=== PATIENT | male | born 1995 | race African-American/Black ===

== ENCOUNTER 2020-02-28 16:45 | Emergency (ER) | payer MEDICAID, OTHER ==
[~2020-02-28] VITALS: Ht 182.9 cm; Wt 65.0 kg
[2020-02-28] MEDS ORDERED: HYDROCODONE/ACETAMINOPHEN 5/325MG TABLET PO STA (18:05)
[2020-02-28 20:00] VITALS: BP 119/68
== END 2020-02-28 21:57 | disposition left against medical advice (07) ==
LOC: ER 16:45
DX: S36.33XA Laceration of stomach, initial encounter (principal); R07.89 Other chest pain; X99.8XXA Assault by other sharp object, initial encounter; Y93.89 Activity, other specified; Y92.89 Other specified places as the place of occurrence of the external cause; Z87.828 Personal history of other (healed) physical injury and trauma
CPT/HCPCS: 71045; 71250; 74176; 99284

== ENCOUNTER 2022-10-03 11:05 | Emergency (ER) | payer MEDICAID ==
[~2022-10-03] VITALS: Ht 182.9 cm; Wt 66.0 kg
[2022-10-03 11:08] VITALS: BP 132/81
[2022-10-03] MEDS ORDERED: DOXYCYCLINE HYCLATE 100MG CAPSULE PO ONE (12:00)
[2022-10-03] MEDS ORDERED: CEFTRIAXONE SODIUM 500 MG/VIAL IM ONE (12:00)
[2022-10-03] MEDS ORDERED: DOXY-326 MT (12:06)
[2022-10-03 13:48] LABS: CLARITY URINE CLEAR (CLEAR); COLOR URINE YELLOW (YELLOW); KETONES URINE NEGATIVE (NEGATIVE); LEUKOCYTE ESTERASE URINE TRACE (NEGATIVE); NITRITE URINE NEGATIVE (NEGATIVE); OCCULT BLOOD URINE TRACE (NEGATIVE); PROTEIN URINE 2+ (NEGATIVE); UROBILINOGEN URINE 0.2 E.U./dL (0.2-1.0)
== END 2022-10-03 15:25 | disposition home or self-care (01) ==
LOC: ER 11:05
DX: R36.9 Urethral discharge, unspecified (principal)
CPT/HCPCS: 81003; 86592; 86694; 86695; 86696; 87389; 96372; 99283; J0696

== ENCOUNTER 2022-11-15 08:56 | Emergency (ER) | payer MEDICAID, OTHER ==
[~2022-11-15] VITALS: Ht 182.9 cm; Wt 73.0 kg
[~2022-11-15 08:56] MED LIST: DOXY-326 MT
[2022-11-15 08:59] VITALS: BP 98/59
[2022-11-15] MEDS ORDERED: CEFTRIAXONE SODIUM 500 MG/VIAL IM ONE (09:15)
[2022-11-15] MEDS ORDERED: DOXY100T2 MT (09:37)
[2022-11-15] MEDS ORDERED: ECON15CR4 TP (09:37)
[2022-11-15 10:49] LABS: *AMPHETAMINES SCREEN URINE NEGATIVE (NEGATIVE); *BARBITURATES SCREEN URINE NEGATIVE (NEGATIVE); *BENZODIAZEPINES SCREEN URINE NEGATIVE (NEGATIVE); *COCAINE SCREEN URINE NEGATIVE (NEGATIVE); CANNABINOID URINE SCREEN PRESUMTIVE POSITIVE (NEGATIVE); METHADONE URINE SCREEN NEGATIVE (NEGATIVE); OPIATES URINE SCREEN NEGATIVE (NEGATIVE); PHENCYCLIDINE URINE SCREEN NEGATIVE (NEGATIVE)
[2022-11-18 05:08] LABS: NEISSERIA GONORRHOEAE NAA Negative (Negative)
== END 2022-11-15 10:22 | disposition home or self-care (01) ==
LOC: ER 09:11
DX: N34.2 Other urethritis (principal); Z20.2 Contact with and (suspected) exposure to infections with a predominantly sexual mode of transmission
CPT/HCPCS: 80305; 87491; 87591; 99283; J0696

== ENCOUNTER 2022-12-27 06:25 | Emergency (ER) | payer MEDICAID, OTHER ==
[~2022-12-27] VITALS: Ht 182.9 cm; Wt 71.7 kg
[~2022-12-27 06:25] MED LIST changes: +DOXY100T2 MT; +ECON15CR4 TP
[2022-12-27 06:49] VITALS: BP 123/67
[2022-12-27] MEDS ORDERED: CEFTRIAXONE SODIUM 1 G/VIAL IM ONE (07:15)
[2022-12-27] MEDS ORDERED: DOXYCYCLINE HYCLATE 100MG CAPSULE PO ONE (07:15)
[2022-12-27] MEDS ORDERED: CEFTRIAXONE 1 G PREMIX 50 ML IV SCH (09:45)
[2022-12-27] MEDS ORDERED: DOXYCYCLINE HYCLATE 100MG CAPSULE PO SCH (09:45)
== END 2022-12-27 10:11 | disposition left against medical advice (07) ==
LOC: ER 06:25
DX: B34.9 Viral infection, unspecified (principal); Z20.2 Contact with and (suspected) exposure to infections with a predominantly sexual mode of transmission
CPT/HCPCS: 99281

== ENCOUNTER 2023-01-25 22:27 | Emergency (ER) | payer MEDICAID, OTHER ==
[~2023-01-25] VITALS: Ht 185.4 cm; Wt 73.3 kg
[~2023-01-25 22:27] MED LIST changes: -DOXY-326 MT; +DOXY-456 MT
[2023-01-25 23:00] VITALS: BP 111/76
[2023-01-26] MEDS ORDERED: NAPR500T7 MT (03:46)
[2023-01-26] MEDS ORDERED: AMOX1TAB16 MT (03:46)
[2023-01-26 04:42] LABS: CLARITY URINE CLEAR (CLEAR); COLOR URINE YELLOW (YELLOW); KETONES URINE TRACE (NEGATIVE); LEUKOCYTE ESTERASE URINE TRACE (NEGATIVE); NITRITE URINE NEGATIVE (NEGATIVE); OCCULT BLOOD URINE TRACE (NEGATIVE); PH URINE 6.5 (4.5-8.0); PROTEIN URINE 1+ (NEGATIVE); SPECIFIC GRAVITY URINE 1.027 (1.005-1.030)
== END 2023-01-26 08:11 | disposition home or self-care (01) ==
LOC: ER 22:27
DX: K08.89 Other specified disorders of teeth and supporting structures (principal); R36.9 Urethral discharge, unspecified; H92.01 Otalgia, right ear
CPT/HCPCS: 81003; 99283

== ENCOUNTER 2023-08-31 11:16 | Emergency (ER) | payer OTHER ==
[~2023-08-31] VITALS: Ht 182.9 cm; Wt 71.7 kg
[~2023-08-31 11:16] MED LIST changes: +AMOX1TAB16 MT; +NAPR500T7 MT
[2023-08-31 11:57] VITALS: TEMP 98.2; O2SAT 100
[2023-08-31 13:00] VITALS: BP 143/62; PULSE 70; RESP 16
[2023-08-31] MEDS ORDERED: ONDANSETRON 4MG ODT PO ONE (13:00)
[2023-08-31] MEDS ORDERED: KETOROLAC 30MG/ML VIAL IM ONE (13:00)
[2023-08-31 13:55] LABS: HEMATOCRIT. 38.8 % (42.0-52.0); HEMOGLOBIN. 12.7 g/dL (14.0-18.0); MEAN CORPUSCULAR HEMOGLOBIN 26.9 pg (28.0-32.0); MEAN CORPUSCULAR HGB CONC 32.7 g/dL (31.0-37.0); MEAN CORPUSCULAR VOLUME 82.4 fL (80.0-94.0); MEAN PLATELET VOLUME 8.2 fl (7.4-10.4); PLATELET 251 x1000/uL (130-400); RED BLOOD CELL COUNT 4.71 mill/uL (4.7-6.1); RED CELL DISTRIBUTION WIDTH 14.6 % (11.6-14.6); WHITE BLOOD COUNT 5.1 x1000/uL (4.5-11.0)
[2023-08-31 14:02] LABS: DIFFERENTIAL COMMENT 1
[2023-08-31 14:03] LABS: CHLORIDE 104 mEq/L (98-107); INDEX HEMOLYSI 1 (1-3); INDEX ICTERIC 1 (1-4); INDEX LIPEMIC 1 (1-3); POTASSIUM 3.5 mEq/L (3.5-5.1); SODIUM 137 mEq/L (136-145)
[2023-08-31 14:13] LABS: ALANINE AMINOTRANSFERASE 15 IU/L (13-61); ALBUMIN 3.9 g/dL (3.4-5.0); ASPARTATE AMINOTRANSFERASE 17 IU/L (15-37); BILIRUBIN TOTAL 1.5 mg/dL (0.1-1.0); CALCIUM 8.9 mg/dL (8.5-10.1); CARBON DIOXIDE 27 mEq/L (21-32); CREATINE KINASE 299 IU/L (39-308); CREATININE 0.8 mg/dL (0.6-1.3); ETHANOL BLOOD < 10 mg/dL (<10); GLUCOSE 122 mg/dL (70-105); PROTEIN TOTAL 7.7 g/dL (6.0-8.3); UREA NITROGEN BLOOD 6 mg/dL (7-21)
[2023-08-31 15:11] LABS: PLATELET ESTIMATE NORMAL
[2023-08-31] MEDS ORDERED: ONDA4TAB11 PO (15:39)
[2023-08-31] MEDS ORDERED: NAPR-681 MT (15:39)
[2023-08-31] MEDS ORDERED: DOXY100C5 MT (15:39)
[2023-08-31 15:42] LABS: CLARITY URINE CLEAR (CLEAR); COLOR URINE YELLOW (YELLOW); GLUCOSE URINE NEGATIVE (NEGATIVE); KETONES URINE NEGATIVE (NEGATIVE); LEUKOCYTE ESTERASE URINE NEGATIVE (NEGATIVE); NITRITE URINE NEGATIVE (NEGATIVE); OCCULT BLOOD URINE NEGATIVE (NEGATIVE); PH URINE >=9.0 (4.5-8.0); PROTEIN URINE TRACE (NEGATIVE); SPECIFIC GRAVITY URINE 1.023 (1.005-1.030)
[2023-08-31 15:44] LABS: BACTERIA URINE NONE SEEN; SQUAMOUS EPITHELIAL CELL URINE 1+ /lpf (RARE/1+); YEAST URINE NONE SEEN
[2023-08-31] MEDS ORDERED: CEFTRIAXONE SODIUM 500 MG/VIAL IM ONE (15:45)
[2023-08-31 16:35] LABS: RBC URINE 0-2 /hpf (0-2)
[2023-09-05 17:08] LABS: CHLAMYDIA TRACHOMATIS NAA Negative (Negative); NEISSERIA GONORRHOEAE NAA Negative (Negative)
== END 2023-08-31 17:56 | disposition home or self-care (01) ==
LOC: ER 11:16
DX: R11.2 Nausea with vomiting, unspecified (principal); Z98.890 Other specified postprocedural states
CPT/HCPCS: 87491; 87591; 80053; 81003; 80320; 82550; 83605; 83690; 85025; 36415; 96372; 99284; Q0162; J0696; J1885; Z7610 ×2; G0480

== ENCOUNTER 2023-11-08 15:55 | Emergency (ER) | payer OTHER ==
[~2023-11-08] VITALS: Ht 182.9 cm; Wt 72.0 kg
[~2023-11-08 15:55] MED LIST changes: +DOXY100C5 MT; +NAPR-681 MT; +ONDA4TAB11 PO
[2023-11-08 16:03] VITALS: BP 137/59; PULSE 81; RESP 12; TEMP 99.1; O2SAT 100
[2023-11-08 17:49] LABS: BASOPHILS % 0.4 % (0.0-2.0); EOSINOPHILS % 2.4 % (0.0-5.0); HEMATOCRIT. 40.1 % (42.0-52.0); HEMOGLOBIN. 13.4 g/dL (14.0-18.0); LYMPHOCYTES % 27.5 % (20.0-50.0); MEAN CORPUSCULAR HEMOGLOBIN 28.3 pg (28.0-32.0); MEAN CORPUSCULAR HGB CONC 33.3 g/dL (31.0-37.0); MEAN PLATELET VOLUME 7.9 fl (7.4-10.4); MONOCYTES % 9.2 % (2.0-8.0); NEUTROPHILS % 60.5 % (40.0-76.0); PLATELET 286 x1000/uL (130-400); RED BLOOD CELL COUNT 4.72 mill/uL (4.7-6.1); RED CELL DISTRIBUTION WIDTH 16.4 % (11.6-14.6); WHITE BLOOD COUNT 5.9 x1000/uL (4.5-11.0)
[2023-11-08 18:13] LABS: ALANINE AMINOTRANSFERASE 14 IU/L (10-49); ALBUMIN 4.3 g/dL (3.2-4.8); ASPARTATE AMINOTRANSFERASE 28 IU/L (<34); CALCIUM 9.4 mg/dL (8.7-10.4); CARBON DIOXIDE 34 mEq/L (21-32); CHLORIDE 103 mEq/L (98-107); CREATININE 0.8 mg/dL (0.6-1.3); GLUCOSE 89 mg/dL (70-105); POTASSIUM 4.2 mEq/L (3.5-5.1); PROTEIN TOTAL 7.4 g/dL (6.0-8.3); SODIUM 139 mEq/L (136-145); UREA NITROGEN BLOOD 8 mg/dL (9-23)
[2023-11-08 18:24] LABS: TROPONIN I HIGH SENSITIVITY < 4 ng/L (3.0-53)
== END 2023-11-09 00:23 | disposition left against medical advice (07) ==
LOC: ER 15:55
DX: R06.02 Shortness of breath (principal); Z53.21 Procedure and treatment not carried out due to patient leaving prior to being seen by health care provider
CPT/HCPCS: 36415; 80053; 84484; 85025; 93005; 99281

== ENCOUNTER 2025-06-17 00:32 | Emergency (ER) | payer OTHER ==
[~2025-06-17] VITALS: Ht 182.9 cm; Wt 73.3 kg
[~2025-06-17 00:32] MED LIST changes: -DOXY-456 MT; +DOXY-461 MT; +NAPR-1486 MT; -NAPR500T7 MT; +ONDA-239 PO; -ONDA4TAB11 PO
[2025-06-17 00:57] VITALS: O2SAT 100
[2025-06-17] MEDS: HYDROCODONE/ACETAMINOPHEN 5/325MG TABLET PO ONE (02:17)
[2025-06-17] MEDS ORDERED: IBUP-2029 MT (03:53)
[2025-06-17 04:08] VITALS: BP 121/79; PULSE 72; RESP 16; TEMP 36.8; O2SAT 100
== END 2025-06-17 04:23 | disposition home or self-care (01) ==
LOC: ER 00:32
DX: S00.83XA Contusion of other part of head, initial encounter (principal); S20.229A Contusion of unspecified back wall of thorax, initial encounter; J45.909 Unspecified asthma, uncomplicated; Z86.73 Personal history of transient ischemic attack (TIA), and cerebral infarction without residual deficits; Z98.890 Other specified postprocedural states; Z79.899 Other long term (current) drug therapy; X58.XXXA Exposure to other specified factors, initial encounter; Y93.89 Activity, other specified; Y92.89 Other specified places as the place of occurrence of the external cause; Y99.8 Other external cause status
CPT/HCPCS: 70486; 71045; 72128; 99284